=== PATIENT | male | born 1990 | race Caucasian/White ===

== ENCOUNTER 2023-01-21 09:46 | Inpatient (IN) ==
--- NOTE | 2022-12-26 14:05 | PAT Medication Instructions ---
Medication Instructions Date of Service December 26, 2022 Home Medications Medical Marijuana 1 dose inhalation UD PRN cholecalciferol (vitamin D3) 25 mcg (1,000 unit) tablet (Vitamin D3) 25 mcg PO QAM cyclobenzaprine 10 mg tablet 10 mg PO BID diclofenac sodium 75 mg tablet,delayed release 75 mg PO BID duloxetine 60 mg capsule,delayed release 60 mg PO QAM fluticasone propionate 50 mcg/actuation nasal spray,suspension 1 spray intranasal DAILY lamotrigine 100 mg tablet 100 mg PO QAM omeprazole 20 mg tablet,delayed release 40 mg PO QAM ASK your surgeon for instructions diclofenac sodium 75 mg tablet,delayed release 75 mg PO BID STOP taking 24 hours before surgery Medical Marijuana 1 dose inhalation UD PRN DO NOT take the morning of surgery cholecalciferol (vitamin D3) 25 mcg (1,000 unit) tablet (Vitamin D3) 25 mcg PO QAM cyclobenzaprine 10 mg tablet 10 mg PO BID Take morning of surgery With a small sip of water, OTHERWISE NOTHING TO EAT OR DRINK AFTER MIDNIGHT: duloxetine 60 mg capsule,delayed release 60 mg PO QAM fluticasone propionate 50 mcg/actuation nasal spray,suspension 1 spray intranasal DAILY lamotrigine 100 mg tablet 100 mg PO QAM omeprazole 20 mg tablet,delayed release 40 mg PO QAM Take evening before surgery cyclobenzaprine 10 mg tablet 10 mg PO BID Other Notes If you have any questions please call us at [phone] or [phone] or [phone] or [phone]
--- NOTE | 2023-01-06 10:15 | Anesthesiology Consultation ---
Date of Service January 06, 2023 Assessment & Plan (1) Encounter for pre-operative examination: COVID screening: Per assessment on 01/06: No known COVID-19 positive contacts or current COVID-19 related symptoms. Travel screen negative. At surgeon discretion if preop Covid testing being done. Chart Review Chart Review: Acceptable Risk for Surgery and Patient seen in Pre Admission Testing Teaching & Discussion Pre-Anesthesia Teaching/Discussion Notes: Instructed NPO after midnight before surgery,except medications with 15 cc of water. Medication instructions provided according to the PAT guidelines. History Surgery Operation Date: 01/21/23 11:25 Proposed Procedures p L5-S1 Decompression and Fusion, Spinal Cord Monitoring - Sukh Bond, Height/Weight Height: 6 ft Weight: 94.3 kg Allergies Allergy/AdvReac Type Severity Reaction Status Date / Time No Known Allergies Allergy Verified 12/26/22 10:38 Medications Home Medications Medication Instructions Recorded Confirmed Last Taken Medical Marijuana 1 dose inhalation UD PRN PTSD AND 12/26/22 12/26/22 Unknown ANXIETY cholecalciferol (vitamin D3) 25 25 mcg PO QAM 12/26/22 12/26/22 Unknown mcg (1,000 unit) tablet (Vitamin D3) cyclobenzaprine 10 mg tablet 10 mg PO BID 12/26/22 12/26/22 Unknown diclofenac sodium 75 mg 75 mg PO BID 12/26/22 12/26/22 Unknown tablet,delayed release duloxetine 60 mg capsule,delayed 60 mg PO QAM 12/26/22 12/26/22 Unknown release fluticasone propionate 50 1 spray intranasal DAILY 12/26/22 12/26/22 Unknown mcg/actuation nasal spray,suspension lamotrigine 100 mg tablet 100 mg PO QAM 12/26/22 12/26/22 Unknown omeprazole 20 mg tablet,delayed 40 mg PO QAM 12/26/22 12/26/22 Unknown release Past Medical History Medical History Anxiety and depression Elevated cholesterol GERD (gastroesophageal reflux disease) Kidney cysts Left, under surveillance Post traumatic stress disorder Exercise / Class Metabolic Activity II 4-5 Yardwork/Stairs/Walk up hill Past Family History Family History Other No family history of adverse response to anesthesia Past Surgical History Surgical History H/O hand surgery Right (+ hardware) H/O rhinoplasty H/O shoulder surgery Left History of colonoscopy [place] teeth removed Past Anesthesia History No Hx of Anesthesia Complications and No Family Hx of Anesthesia Complications History of PONV No Hx of PONV and No Hx of Motion Sickness Social History Smoking Status: Current every day smoker tobacco type: cigarettes Smoking cigarettes per day: 5 cigs/day Do You Dip or Chew Tobacco: No Hx Alcohol Use: No substance use type: marijuana (Medical card- concentrate, daily) Review of Systems Patient denies chest pain, shortness of breath, dyspnea on exertion, fever, chills, cough, wheezing, palpitations. Physical Exam Vital Signs VITALS BP 120/85 P 86 TEMP 98.8 SP02 97%RA RESP 16 PHYSICAL Full cervical extension range of motion. Full TMJ range of motion. TMD 4 finger breaths Mallampati Score 1 Dentition: missing molars Lungs: clear throughout to auscultation Cardiac: regular rate and rhythm, no murmurs noted Spine: normal Carotid arteries: negative bruit Extremities: no LE edema Lab Results Anesthesia Preop Results Results Anesthesia Widget: WBC 7.54 K/ul (4.8-10.8) 01/06/23 Hgb 15.8 g/dl (14.0-18.0) 01/06/23 Hct 45.2 % (42.0-52.0) 01/06/23 Plt 195 K/uL (130-400) 01/06/23 Na 140 mmol/L (136-145) 01/06/23 K 4.5 mmol/L (3.5-5.1) 01/06/23 Cl 106 mmol/L (98-107) 01/06/23 CO2 27 mmol/L (21-32) 01/06/23 BUN 13 mg/dl (6-23) 01/06/23 Creat 0.94 mg/dl (0.6-1.4) 01/06/23 Glucose Level 94 mg/dl (70-99(Fasting)) 01/06/23 PT 10.7 Seconds (9.0-12.0) 01/06/23 PTT 26.9 Seconds (21.0-31.0) 01/06/23 INR 1.0 (0.9-1.1) 01/06/23 Urine Color Yellow 01/06/23 Urine Appearance Clear (Clear) 01/06/23 Urine pH 7.0 (4.5-7.5) 01/06/23 Urine Specific [place] 1.017 (1.000-1.030) 01/06/23 Urine Protein Negative (Negative) 01/06/23 Urine Glucose (UA) Negative (Negative) 01/06/23 Urine Ketones Negative (Negative) 01/06/23 Urine Blood Negative (Negative) 01/06/23 Urine Nitrite Negative (Negative) 01/06/23 Urine Bilirubin Negative (Negative) 01/06/23 Urine Urobilinogen Negative (Negative) 01/06/23 Urine Leukocyte Esterase Negative (Negative) 01/06/23 Blood Type B Positive 01/06/23 Antibody Screen NEGATIVE 01/06/23 Testing Electrocardiogram Date: 01/06/23 Findings: + NSR @ (84) Chest X-Ray Date: 01/06/23 FINDINGS: Lung volumes are normal. Lungs are clear. There is no pneumothorax or pleural effusion. Cardiac size is normal. Mediastinal contours are normal. There is no evidence for pulmonary edema. IMPRESSION: No acute cardiopulmonary findings. COVID-19 Risk Screen Screening Information COVID-19 Screen Date: 01/06/23 Exposure 21 Days Family/Household +COVID Last 21 Days: No Exposure 10 Days Any COVID Exposure Last 10 Days: No Symptoms Last 10 Days Experienced COVID Sx Last 10 Days: No + COVID 0-90 Days COVID + in Last 0-90 Days: No
[~2023-01-21 09:46] MED LIST: ACETAMINOPHEN 500 MG TAB PO SCH; CeleBREX 200 MG CAP PO SCH; FAMOTIDINE/PF 20 MG/2 ML VIAL IV ONE; GABAPENTIN 900 MG DOSE PO SCH; LR 15ML/HR IV SCH; ceFAZolin 2000MG 2,000 MG/15 ML SYR IV SCH
[2023-01-21] MEDS ORDERED: PROMETHAZINE HCL 6.25 MG in SODIUM CHLORIDE 0.9% 50 ML IV PRN (10:26)
[2023-01-21] MEDS ORDERED: ePHEDrine sulfate 50 MG/ML AMP IV PRN (10:26)
[2023-01-21] MEDS ORDERED: fentaNYL citrate PF 100 MCG/2 ML VIAL IV PRN (10:26)
[2023-01-21] MEDS ORDERED: ONDANSETRON INJ 2 MG/ML 2 ML VIAL IV PRN ×2 (10:26→15:17)
[2023-01-21] MEDS ORDERED: ATROPINE SULFATE 0.1 MG/ML 10ML SYR IV PRN (10:26)
[2023-01-21] MEDS ORDERED: fentaNYL citrate PF 100 MCG/2 ML VIAL ONE (11:01)
[2023-01-21] MEDS ORDERED: MIDAZOLAM HCL 1 MG/ML 2ML VIAL ONE (11:01)
[2023-01-21] MEDS ORDERED: LIDOCAINE 2% 2 ML VIAL/AMP(20MG/ML) INFIL ONE (11:01)
[2023-01-21] MEDS ORDERED: SUGAMMADEX SODIUM 200 MG/2 ML VIAL IV ONE ×2 (11:02→13:28)
[2023-01-21] MEDS ORDERED: DEXAMETHASONE SOD INJ 4 MG/ML VIAL ONE (11:02)
[2023-01-21] MEDS ORDERED: PROPOFOL IV EMULSION 10 MG/ML 20 ML VIAL IV ONE (11:02)
[2023-01-21] MEDS ORDERED: METOCLOPRAMIDE HCL INJ 5 MG/ML 2 ML VIAL ONE (11:02)
[2023-01-21] MEDS ORDERED: ONDANSETRON INJ 2 MG/ML 2 ML VIAL ONE (11:02)
[2023-01-21] MEDS ORDERED: ROCURONIUM BROMIDE 10 MG/ML 5 ML VIAL IV ONE (11:02)
--- NOTE | 2023-01-21 11:28 | History & Physical Bridge Note ---
Date of Service January 21, 2023 History & Physical Bridge Note I have examined the patient, reviewed the History & Physical and in the interval since the performance of the History & Physical I have noted the following changes of clinical significance: no changes noted
--- NOTE | 2023-01-21 11:29 | History & Physical Report ---
Date of Service January 21, 2023 Assessment & Plan (1) Neurogenic claudication due to lumbar spinal stenosis: Plan: L5-S1 decompression and fusion History of Present Illness Chief Complaint: Back and bilateral leg pain Primary Care Provider: NO PCP This is a 32-year-old male presents with chronic persistent back and leg pain after failing course of nonoperative care is here for surgical invention. Allergies Allergy/AdvReac Type Severity Reaction Status Date / Time No Known Allergies Allergy Verified 01/21/23 10:24 Home Medications Medication Instructions Recorded Confirmed Type Medical Marijuana 1 dose inhalation UD PRN PTSD AND 12/26/22 01/21/23 History ANXIETY cholecalciferol (vitamin D3) 25 25 mcg PO QAM 12/26/22 01/21/23 History mcg (1,000 unit) tablet (Vitamin D3) cyclobenzaprine 10 mg tablet 10 mg PO BID 12/26/22 01/21/23 History diclofenac sodium 75 mg 75 mg PO BID 12/26/22 01/21/23 History tablet,delayed release duloxetine 60 mg capsule,delayed 60 mg PO QAM 12/26/22 01/21/23 History release (Cymbalta) fluticasone propionate 50 1 spray intranasal DAILY 12/26/22 01/21/23 History mcg/actuation nasal spray,suspension lamotrigine 100 mg tablet 200 mg PO QAM 12/26/22 01/21/23 History (Lamictal) omeprazole 20 mg tablet,delayed 40 mg PO QAM 12/26/22 01/21/23 History release Past Med/Surg History Medical History Anxiety and depression Elevated cholesterol GERD (gastroesophageal reflux disease) Kidney cysts Left, under surveillance Post traumatic stress disorder Surgical History H/O hand surgery Right (+ hardware) H/O rhinoplasty H/O shoulder surgery Left History of colonoscopy [place] teeth removed Family History Other No family history of adverse response to anesthesia Social History Smoking Status: Current every day smoker Cigarettes Per Day: 5 cigs/day; Second Hand Exposure: Yes; Do You Dip or Chew Tobacco: No; Hx Alcohol Use: No Preferred Language: Beninese Evaporator Required: No Beliefs That Will Affect Care: None Current Living Situation: Family Feels Safe at Home: Yes Safety Concerns: Feels Safe At This Time Assistive Devices: Glasses Physical Exam Physical Exam: Patient is alert and oriented Heart regular rhythm Lungs clear Results & Data Results & Data Vital Signs (Past 12 Hours) Vital Signs Temp Pulse Resp BP Pulse Ox O2 Del Method 01/21/23 10:26 36.7 C 87 20 128/84 98 Room Air
[2023-01-21] MEDS ORDERED: ceFAZolin 330 MG/ML 1 GM VIAL ONE (11:52)
[2023-01-21] MEDS ORDERED: BUPIVACAINE/EPINEPHRINE 0.25% 1:200,000 30 ML VIAL ONE (11:52)
[2023-01-21] MEDS ORDERED: LARYING-O-JET KIT (LTA) ONE (12:38)
[2023-01-21] MEDS ORDERED: HYDROmorphone INJ 2 MG/ML SYR/VIAL ONE (12:41)
[2023-01-21] MEDS ORDERED: PHENYLEPHRINE HCL 10 MG/ML VIAL ONE (12:43)
[2023-01-21] MEDS ORDERED: KETOROLAC 30 MG/ML VIAL ONE (13:29)
[2023-01-21] MEDS ORDERED: FLOSEAL HEMOSTATIC MATRIX 10ML TOP ONE (13:38)
--- NOTE | 2023-01-21 13:43 | Operative Report ---
Post Operative Report Pre & Post Diagnosis Operation Date: 01/21/23 11:25 Pre-Op Diagnosis: Neurogenic claudication due to lumbar spinal stenosis Post-Op Diagnosis: Neurogenic claudication due to lumbar spinal stenosis I identified the patient and participated in the time-out.: Yes Procedure Operation Date: 01/21/23 11:25 Actual Procedures 1. Lumbar decompression bilaterally facetectomies and foraminotomies L4-L5 L5- S1. #2 posterior spinal fusion L5-S1. #3 placement posterior instrumentation L5-S1. #4 interbody fusion L5-S1. #5 placement of Spira 14 x 26 mm cage at L5- S1. #6 placement locally harvested morselized autograft in the posterior gutters. #7 placement of I factor, and of the talus in the interbody space and posterior gutters. Surgeon Sukh Bond, Business Unit Leader Grisel Geronimo Estimated Blood Loss 100 Findings Consistent with Post-Op Diagnosis Specimens none Indications This is a 32-year-old male who presents above-mentioned diagnosis after failed extensive course of nonoperative care is here for surgical intervention. Description of Procedure Patient was met with identified informed consent obtained. Patient was then taken to the operative suite underwent a patient placed in a prone position on the Phan table top of the Lasha frame. All bony promises well-padded eyes inspected to ensure no external pressure placed upon them. This point the lumbar spine was prepped and draped in a sterile fashion. Sharp dissection with assistance of Bovie cautery to form down to and exposing the lamina transverse process of L5 and sacral ala bilaterally. From caudal to cephalad fashion complete laminectomy L5 partial laminectomy of L4 was performed including bilateral medial facetectomies and foraminotomies addressing severe spinal stenosis. Pedicle screws were then placed in L5 and S1 levels bilaterally with assistance of fluoroscopy and appropriate sized richie placed. By way the transforaminal approach on the right complete discectomy of L5-S1 was performed endplates corrected to subcortical bleeding bone and a 14 x 26 mm Spira cage with I factor tapped in position. The rods were then locked into final position bilaterally. The transverse processes of L5 and sacral ala burred to subcortical bleeding bone. I factor amount of the test and locally harvested morselized autograft was placed in the posterior gutters. 15 round ARIA drain inserted. The incision was then closed with 1 Vicryl the fascia 2-0 Vicryl subcutaneously and 4 Monocryl for final skin closure. Steri-Strips sterile dressing placed. Patient awakened taken to PACU stable condition. Please note spinal cord monitoring was utilized at the procedure no changes noted. Lastly Grisel Geronimo was present at the entire surgeon while the patient positioning complex portions of the surgery and final skin closure. I attest to the content of the Intraoperative Record and any orders documented therein. Any exceptions are noted below.
[2023-01-21] MEDS ORDERED: bisacodyL 10 MG SUPP PR PRN (15:17)
[2023-01-21] MEDS ORDERED: ALUMINUM/MAGNESIUM SUSP 30 ML UDC PO PRN (15:17)
[2023-01-21] MEDS ORDERED: hydrOXYzine HCl 25 MG TAB PO PRN (15:17)
[2023-01-21] MEDS ORDERED: MAGNESIUM HYDROXIDE SUSP 30 ML UDC PO PRN (15:17)
[2023-01-21] MEDS ORDERED: LORazepam 2 MG/1 ML VIAL IV PRN (15:17)
[2023-01-21] MEDS ORDERED: FAMOTIDINE 20 MG TAB PO PRN (15:17)
[2023-01-21] MEDS ORDERED: traMADol HCL 50 MG TABLET PO PRN (15:17)
[2023-01-21] MEDS ORDERED: LORazepam 0.5 MG TAB PO PRN (15:17)
[2023-01-21] MEDS ORDERED: METOCLOPRAMIDE HCL INJ 5 MG/ML 2 ML VIAL IV PRN (15:17)
[2023-01-21] MEDS ORDERED: HYDROmorphone INJ 0.5 MG/0.5 ML SYR IV PRN (15:17)
[2023-01-21] MEDS ORDERED: oxyCODONE HCL IR 5 MG TAB (IMMEDIATE RELEASE) PO PRN (15:17)
[2023-01-21] MEDS ORDERED: HYDROmorphone INJ 1 MG/ML SYRINGE IV PRN (15:17)
[2023-01-21] MEDS ORDERED: DO NOT ADMINISTER FLU VACCINE PRN (15:17)
[2023-01-21] MEDS ORDERED: DO NOT ADMINISTER PNEUMOCOCCAL VACCINE PRN (15:17)
[2023-01-21] MEDS ORDERED: ACETAMINOPHEN 1,000 MG/100 ML VIAL IV PRN (15:17)
[2023-01-21] MEDS ORDERED: PROMETHAZINE HCL 12.5 MG in SODIUM CHLORIDE 0.9% 50 ML IV PRN (15:17)
[2023-01-21] MEDS ORDERED: ONDANSETRON 4 MG OD TAB PO PRN (15:17)
[2023-01-21] MEDS ORDERED: diphenhydrAMINE Capsule 25 MG CAP PO PRN (15:17)
[2023-01-21] MEDS ORDERED: NALOXONE HCL 0.4 MG/1 ML VIAL/CARP IV PRN (15:17)
[2023-01-21] MEDS ORDERED: SOD PHOSPHATE/SOD BIPHOSPHATE ENEMA 132 ML BTL PR PRN (15:17)
[2023-01-21] MEDS: LACTATED RINGER'S 1,000 ML IV SCH (15:25)
[2023-01-21] MEDS ORDERED: MEDICAL MARIJUANA INH PRN (15:25)
--- NOTE | 2023-01-21 15:32 | Anesthesiology Progress Note ---
Date of Service January 21, 2023 Anesthesia Post Procedure Vital Signs Vital Signs: Temp Pulse Pulse Resp BP Pulse Ox O2 Del Method 01/21/23 14:45 36.3 C L 85 15 136/76 98 Room Air 01/21/23 14:35 89 18 140/75 99 Room Air 01/21/23 14:25 82 12 129/72 100 Oxymask 01/21/23 14:15 87 14 133/84 100 Oxymask 01/21/23 14:05 36.2 C L 90 15 143/69 H 99 Oxymask 01/21/23 10:26 36.7 C 87 20 128/84 98 Room Air O2 Flow Rate 01/21/23 14:45 01/21/23 14:35 01/21/23 14:25 11 01/21/23 14:15 11 01/21/23 14:05 11 01/21/23 10:26 Pain Intensity Back: Pain Intensity: 4 Transfer of Care Handoff Completed per policy Notes Mental Status: alert / awake / arousable Patient Amnestic to Procedure: Yes Nausea / Vomiting: adequately controlled Pain: adequately controlled Airway Patency, RR, SpO2: stable & adequate BP & HR: stable & adequate Hydration State: stable & adequate Anesthetic Complications: no major complications apparent
--- NOTE | 2023-01-21 16:17 | Fluoroscopy Report ---
[place] lumbar spine 2-3V CLINICAL HISTORY: L5-S1 DECOMPRESSION AND FUSION COMPARISON STUDY: None FLUOROSCOPY TIME: 23.0 seconds FLUOROSCOPY IMAGES: 2 EXPOSURE DOSE: 20.49 mGy FINDINGS: Laminectomy with posterior interbody richie and screw fusion at L5-S1. Hardware appears intact . Spondylitic spurring. Early radiopaque surgical sponge projects anterior to the mid sacrum. IMPRESSION: Fluoroscopic assistance as above. ACT 112: Negative or not required by law. Electronically signed by: Alli Townsend M.D. 01/21/2023 4:15 PM
[2023-01-21] MEDS: ACETAMINOPHEN 500 MG TAB PO PRN (19:06)
[2023-01-21] MEDS: DOCUSATE SODIUM/SENNA 50/8.6MG TAB PO SCH (20:11)
[2023-01-21] MEDS: ceFAZolin 2000MG 2,000 MG/15 ML SYR IV SCH (20:11)
[2023-01-21] MEDS: CYCLOBENZAPRINE HCL 10 MG TAB PO SCH (20:12)
[2023-01-22] MEDS: LACTATED RINGER'S 1,000 ML IV SCH (01:37)
[2023-01-22] MEDS: ceFAZolin 2000MG 2,000 MG/15 ML SYR IV SCH (03:35)
[2023-01-22] MEDS: ACETAMINOPHEN 500 MG TAB PO PRN ×2 (03:40→22:11)
[2023-01-22] MEDS: POLYETHYLENE (MIRALAX) 17 GM PACK PO SCH ×4 (06:23→23:19)
[2023-01-22 07:01] LABS: Basophils # (auto) 0.03 K/uL (0-0.2); Basophils % (auto) 0.2 %; Eosinophils # (auto) 0.02 K/uL (0-0.50); Eosinophils % (auto) 0.1 %; Hematocrit (blood only) 40.3 % (42.0-52.0); Hemoglobin 14.2 g/dl (14.0-18.0); Immature Granulocytes # (auto) 0.09 K/uL (0.01-0.20); Immature Granulocytes % (auto) 0.5 %; Lymphocytes # (auto) 1.48 K/uL (1.2-3.4); Lymphocytes % (auto) 8.6 %; Mean Corpuscular Hemoglobin 31.2 pg (25.0-34.0); Mean Corpuscular Hgb Conc 35.2 g/dL (32.0-36.0); Mean Corpuscular Volume 88.6 fL (80.0-100.0); Mean Platelet Volume 11.4 fL (9.4-12.4); Monocytes # (auto) 1.13 K/uL (0.11-0.59); Monocytes % (auto) 6.6 %; Platelet Count 186 K/uL (130-400); RDW Coefficient of Variation 12.7 % (11.5-14.5); RDW Standard Deviation 41.2 fL (36.4-46.3); Red Blood Count 4.55 M/uL (4.70-6.10); White Blood Count 17.25 K/ul (4.8-10.8)
[2023-01-22 07:15] LABS: Creatinine Clr Calc Pharmacy 136.1 ml/min; Est GFR (African American) 126.2 ml/min; Est GFR (Non-African American) 108.9 ml/min
[2023-01-22 07:21] VITALS: O2SAT 98
--- NOTE | 2023-01-22 08:29 | Orthopedic Progress Note ---
Date of Service January 22, 2023 Assessment & Plan (1) Neurogenic claudication due to lumbar spinal stenosis: Plan: This time initiate physical therapy monitor his ARIA operatively discharge home next few days. Admission and Anticipated Discharge Date Admission Date: January 21, 2023 Subjective Back pain controlled leg pain improved Physical Exam Physical Exam: Patient is currently in bed. Is comfortable. Is constricted testing. Results & Data Vital Signs (Past 12 Hours) Vital Signs Temp Pulse Resp BP Pulse Ox O2 Del Method 01/22/23 07:18 37.3 C 74 16 118/75 98 Room Air 01/22/23 03:34 36.7 C 80 18 116/68 97 Room Air 01/21/23 22:04 37.0 C 83 18 124/79 96 Room Air
[2023-01-22] MEDS: CHOLECALCIFEROL 1,000 UNITS 25 MCG TAB PO SCH (08:43)
[2023-01-22] MEDS: DULoxetine HCL 60 MG CAP PO SCH (08:44)
[2023-01-22] MEDS: CYCLOBENZAPRINE HCL 10 MG TAB PO SCH ×2 (08:44→22:12)
[2023-01-22] MEDS: lamoTRIgine 100 MG TAB PO SCH (08:45)
[2023-01-22] MEDS: FLUTICASONE PROPIONATE NA SPR 16 GM BTL SCH (08:46)
[2023-01-22] MEDS: PANTOprazole 40 MG TAB PO SCH (08:46)
[2023-01-22] MEDS: dexAMETHasone 6 MG in SYRINGE 0 ML IV SCH (08:48)
[2023-01-22] MEDS: DOCUSATE SODIUM/SENNA 50/8.6MG TAB PO SCH (22:14)
[2023-01-23] MEDS: POLYETHYLENE (MIRALAX) 17 GM PACK PO SCH ×2 (06:02→12:29)
[2023-01-23 07:17] VITALS: TEMP 98.2
[2023-01-23] MEDS: CYCLOBENZAPRINE HCL 10 MG TAB PO SCH (08:16)
[2023-01-23] MEDS: CHOLECALCIFEROL 1,000 UNITS 25 MCG TAB PO SCH (08:16)
[2023-01-23] MEDS: DULoxetine HCL 60 MG CAP PO SCH (08:17)
[2023-01-23] MEDS: FLUTICASONE PROPIONATE NA SPR 16 GM BTL SCH (08:17)
[2023-01-23] MEDS: PANTOprazole 40 MG TAB PO SCH (08:18)
[2023-01-23] MEDS: lamoTRIgine 100 MG TAB PO SCH (08:18)
[2023-01-23] MEDS: dexAMETHasone 6 MG in SYRINGE 0 ML IV SCH (08:19)
--- NOTE | 2023-01-23 10:16 | Discharge Summary ---
Date of Service January 23, 2023 Admission HPI Per Admitting Provider This is a 32-year-old male presents with chronic persistent back and leg pain after failing course of nonoperative care is here for surgical invention. Principal Diagnosis Lumbar spinal stenosis with radiculopathy Discharge Data Allergies Allergy/AdvReac Type Severity Reaction Status Date / Time No Known Allergies Allergy Verified 01/21/23 10:24 Procedures Performed Operation Date: 01/21/23 11:25 Actual Procedures p L5-S1 Decompression and Fusion, Spinal Cord Monitoring(Not Applicable) - Sukh Bond DO Ordered Studies 01/21/23 11:25 [place] lumbar spine 2-3V Routine Hospital Course (1) Neurogenic claudication due to lumbar spinal stenosis: Patient with lumbar decompression fusion tolerated this well stable orthopedic for postoperative. Postop day 1 is up and ambulating breast postop day #2. ARIA drain decreasing appropriate. Excellent strength testing. Pain well controlled. Subsequent discharge home. Discharge orders instructions found in chart for further review. Total Time Total Time Spent Total Time Spent (In Minutes): 20 minutes Discharge Plan Discharge Items Patient Disposition: Home - Self-Care Reason For Visit: POSTOP Discharge Diagnosis: Lumbar spinal stenosis with radiculopathy Activity: As commented below Non-emergency contact: Primary Care Provider Call non-emergency contact if: you have any medication questions Follow-up/Referrals: PCP,DARRELL [Primary Care Provider] - Diet: Regular Addtl Attending Provider Instructions: ACTIVITY RECOMMENDATIONS: SELF CARE INSTRUCTIONS AFTER THORACIC/LUMBAR FUSIONS 1. You may walk to your tolerance. It is good exercise for your legs and back. Expect some back and intermittent leg aches and pains. 2. You may perform "counter-top" level activities (make a sandwich, jorge with a project, etc.). 3. No bending or lifting of more than 10 pounds or back twisting of any nature (roll like a log when turning in bed). 4. You may ride in a car for 20-30 minutes at a time. No driving until after your first visit with your doctor. 5. Frequent changes of position and restricting sitting to 30 minutes at a time will help limit the amount of back spasms and stiffness you may experience. 6. You may discontinue the use of ambulatory aids (cane, crutches, etc.) once your strength and confidence allow. 7. You may instructional technology director the shower and let water strike your incision when you arrive home at least once daily. Do not take a tub bath, sit in a hot tub or go into a swimming pool until after your first recheck in the office. SPECIAL CARE INSTRUCTIONS: VERY IMPORTANT TO READ AND REVIEW A. Your surgical incision has been closed with a cosmetic suture under the skin that will dissolve in about 6 weeks. In 14 days, you can use a pair of clean scissors and cut the suture that is left outside of the skin at the ends of your incision. 1. The small skin tapes can be removed 7 days after surgery if they have not fallen off by that point. 2. You may keep the wound open to air as much as possible to promote healing after post-op day number 5 unless told otherwise by your doctor. 3. If you think the wound looks like it is becoming infected (redness or worsening drainage) and/or you are experiencing fever, chill or worsening back pain and muscle spasms, contact the office so that we may evaluate you as soon as possible. B. Complications are uncommon, but please contact us if you have any signs or symptoms of: 1. wound infection (fever higher than 102.5 degrees F, redness, separation of wound, drainage, or increasing pain from the incision) 2. blood clots in legs (pain, swelling, redness and warmth in legs) 3. urinary tract infection (fever higher than 102.5 degrees F, burning upon urination or increased frequency of urination) 4. nerve problems (inability to walk on your toes or heels, numbness, loss of bowel or bladder control) 5. any other symptoms that concern you C. Please call the office at if you have any concerns or questions about your operation or recovery. D. No smoking! Smoking drastically decreases the chance of a solid fusion. E. Do not take any anti-inflammatory medications (Indocin, Advil, Motrin, Aspirin, Naprosyn, etc.) as these may inhibit the chance of a solid fusion. Tylenol is okay to take for pain. MANAGING PAIN AFTER SPINAL SURGERY 1. Narcotic medication is intended for short-term use and will be provided for surgical pain. Surgical pain usually lasts for a period of 4-6 weeks. Narcotic medication includes Percocet, Vicodin, Darvocet, Tylenol #3 or Lortab. 2. Longer-term pain is more appropriately treated with non-narcotic medication such as Tylenol ES. 3. Muscle spasm is not appropriately treated with narcotics. Muscle relaxers such as Soma, Flexeril or Skelaxin can be used along with Tylenol ES. 4. Remember that we all live with some "aches and pains". This is not unusual or uncommon after an injury or as we get older. a. Back pain is expected and may include muscle spasms for 4 to 6 weeks after surgery. The pain should gradually improve. If the pain worsens for no apparent reason, please contact the office. b. Intermittent leg pain may also be experienced and should not be concerned about unless it worsens for no apparent reason. If so, please contact the office. 5. We will provide appropriate medication within the normal guidelines of their prescribed use. We will also be very cautious and aware of potential abuse and extended duration of patients' medication needs. a. Pain medications are for your comfort and to assist with sleep and rest so that the tissue can heal. They are not provided in order to return to normal activity and should not be used through the day. To do so or worsening pain at night can result from ongoing tissue damage and development of tolerance to the prescribed medicine. 6. Please allow 2-3 days to process refills. Prescriptions will not be mailed but must be picked up at the office. FOLLOW UP VISIT: Keep your scheduled follow-up appointment. Any questions, please call the office at . Pending Studies at Discharge: No Stand-Alone Forms: [facility] [employer], Smoking Cessation Medications and OR Order Prescriptions: New tramadol 50 mg tablet 50 mg PO Q6H PRN (Reason: pain, moderate) Qty: 30 0RF oxycodone 5 mg tablet 5 mg PO Q6H PRN (Reason: pain) Qty: 30 0RF Continued cyclobenzaprine 10 mg Tablet 10 mg PO BID fluticasone propionate 50 mcg/actuation [place],Suspension 1 spray INTRANASAL DAILY Rx Instructions: administer into each nostril lamotrigine [Lamictal] 100 mg Tablet 200 mg PO QAM duloxetine [Cymbalta] 60 mg Capsule,Delayed Release(Dr/Ec) 60 mg PO QAM cholecalciferol (vitamin D3) [Vitamin D3] 25 mcg (1,000 unit) Tablet 25 mcg PO QAM omeprazole 20 mg Tablet,Delayed Release (Dr/Ec) 40 mg PO QAM Medical Marijuana 1 dose inhalation UD PRN (Reason: PTSD AND ANXIETY) Discontinued diclofenac sodium 75 mg Tablet,Delayed Release (Dr/Ec) 75 mg PO BID Discharge Orders: Discharge Order (Routine); Ordered 01/23/23 Ordered By: Sukh Bond Admission Data Admit Date/Time: 01/21/23 13:46 Attending Provider: Sukh Bond Admit Provider: Sukh Bond Primary Care Provider: PCP,DARRELL
[2023-01-23] MEDS: ACETAMINOPHEN 500 MG TAB PO PRN (11:45)
[2023-01-23 11:54] VITALS: BP 136/76; PULSE 84
== END 2023-01-23 12:37 | disposition home or self-care (01) | DRG 455 ==
LOC: ASU 09:46 → 3E 13:46